=== PATIENT | male | born 1975 ===

== ENCOUNTER 2022-11-22 14:36 | Emergency (ER) | payer SELFPAY ==
[~2022-11-22] VITALS: Ht 154 cm; Wt 62.0 kg
--- NOTE | 2022-11-22 15:19 | ED Back Pain ---
General Chief Complaint: Back Problems Stated Complaint: RIGHT SHOULDER/BACK PAIN Nursing Triage Note: UPPER AND LOW BACK PAIN FOR A FEW DAYS. Source of Information: Patient Exam Limitations: No Limitations History of Present Illness Date Seen by Provider: November 22, 2022 Time Seen by Provider: 15:05 Initial Comments Patient is a 47-year-old male who presents to the emergency department with a chief complaint of right posterior shoulder pain, low back pain at the posterior superior iliac crest bilaterally. He states its been ongoing for 2 weeks. He has been using Tylenol sometimes 3 at a time to help with the pain. 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 He states movement makes the pain worse. He denies fevers or chills. He denies shortness of breath. He denies anterior chest pain. No nausea or vomiting. No weakness described. No numbness to his extremities. He takes no daily medications. He is not allergic to anything. Location: Other Timing/Duration: Other (2 weeks) Severity: Moderate Pain/Injury Location: Back Method of Injury: Unknown Modifying Factors: Improves With Immobilization; Worse With Movement Associated Symptoms: No numbness in legs/feet, No tingling in legs/feet, No sensory/motor loss; lower back pain Allergies and Home Medications Allergies Coded Allergies: No Known Drug Allergies (Unverified , 11/22/22) Patient Home Medication List Home Medication List Reviewed: Yes Review of Systems Constitutional: see HPI EENTM: no symptoms reported Respiratory: no symptoms reported Cardiovascular: no symptoms reported Gastrointestinal: no symptoms reported Genitourinary: no symptoms reported Musculoskeletal: back pain, joint pain (right shoulder) Skin: no symptoms reported All Other Systems Reviewed Negative Unless Noted: Yes Past Lrhjpua-Gnyqxh-Kjdyun Hx Patient Social History Tobacco Use?: No Substance use?: No Alcohol Use?: Yes Alcohol Frequency: Once in a while Physical Exam Vital Signs Vital Signs - First Documented 11/22/22 14:43 Temp 36.6 Pulse 102 Resp 16 B/P (MAP) 143/81 (101) Pulse Ox 98 O2 Delivery Room Air Capillary Refill : Less Than 3 Seconds Height, Weight, BMI Height: '" Weight: lbs. oz. 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 Decision time for Depature: 15:32 Referrals: [facility] – [place] NO,LOCAL PHYSICIAN (PCP) Primary Care Physician Patient Instructions: Muscle Strain ED Add. Discharge Instructions: Use ibuprofeno de venta kael 3 tabletas (600 mg) cada 6 a 8 horas segn sea necesario para el dolor. Siempre tome ibuprofeno con alimentos. Puede comprar crema ICY HOT o gel DICLOFENAC de venta kael y aplicarlo en las reas adoloridas; siga las instrucciones del empaque. Relajantes musculares - Metocarbamol 1 comprimido cada 8 horas para espasmos musculares. No tome job medicamento y conduzca. Si el dolor, la hinchazn, el enrojecimiento o la fiebre empeoran en cualquiera de estas reas, regrese al Departamento de Emergencias para irwin nueva evaluacin. Seguimiento con un mdico de atencin primaria. Use over the counter Ibuprofen 3 tablets (600mg) every 6-8 hours as needed for pain. Always take Ibuprofen with food. You can get some over the counter ICY HOT cream or DICLOFENAC gel and put it on the sore areas - follow packaging instructions. Muscle relaxers - Methocarbamol 1 tablet every 8 hours for muscle spasm. Do not take this medication and drive. If you have worsening pain, swelling, redness, fever in any of these areas, please return to the Emergency Department for re-evaluation. Follow up with a primary care doctor. Scripts Methocarbamol (Methocarbamol) 750 Mg Tablet 750 MG PO Q8H PRN for muscle spasm, #20 TAB Prov: RUDY ANGEL MD 11/22/22 RUDY ANGEL MD November 22, 2022 15:19
[2022-11-22] MEDS ORDERED: KETOROLAC 30 MG/ML VIAL IM ONE (15:30)
[2022-11-22] MEDS ORDERED: ORPHENADRINE 60 MG/2 ML (NORFLEX) AMP (ED ONLY) IM ONE (15:30)
[2022-11-22] MEDS ORDERED: METH-732 PO (15:41)
[2022-11-22 15:58] VITALS: BP 152/79
== END 2022-11-22 15:59 | disposition home or self-care (01) ==
LOC: ER 14:40
DX: M54.50 Low back pain, unspecified (principal); M25.511 Pain in right shoulder
CPT/HCPCS: 99284